=== PATIENT | male | born 2000 | race Caucasian/White ===

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

== ENCOUNTER 2024-11-18 17:45 | Emergency (ER) | payer BC, OTHER, SELFPAY ==
--- OUTSIDE RECORDS SUMMARY | 2024-11-18 17:47 | XMS_ITS | Referral Summary ---
Author Organization [facility] Address [address] [place] [id number] Care Team Providers Care Escort Blind Name Role Phone Unavailable Primary Care Provider Unavailabl e Allergies Active Allergy Reactions Criticality Noted Date Comments Morphine Hallucination 09/07/2012 Penicillin G Swelling 08/29/2012 Medications traZODone (DESYREL) 100 mg tablet Take 100 mg by mouth nightly. Active guanFACINE (TENEX) 2 MG tablet Take 4 mg by mouth nightly. Active mupirocin (BACTROBAN) 2% ointment Apply to affected area of skin TID x 7 days. 22 g 04/26/2020 Active ARIPiprazole (ABILIFY) 30 MG tablet Take 30 mg by mouth Daily. Active FLUoxetine (PROZAC) 40 MG capsule Take 40 mg by mouth Daily. Active Active Problems Problem Noted Date Diagnosed Date Lactose intolerance 04/26/2020 Overview (04/26/2020): [place] milk and goat cheese Gluten intolerance 04/26/2020 Overview (04/26/2020): Soy, wheat and red dye Dental caries 12/09/2011 Overview (01/06/2019): [facility] dental Other developmental speech or language disorder 12/09/2011 Overview (01/06/2019): Fine motor delay and sensory processing difficulty, also articulation, receptive and expressive speech delay. Normal hearing documented 2003. Adopted 12/08/2011 Aspergers Syndrome 12/08/2011 Overview (01/06/2019): Care at [facility]. ADHD (attention deficit hyperactivity disorder) 12/08/2011 Anxiety 12/08/2011 Resolved Problems Problem Noted Date Diagnosed Date Resolved Date Right ankle sprain, initial encounter 05/28/2015 04/26/2020 Overview (01/06/2019): Problem List Tile Ditcher Utility Suicidal ideation 07/06/2014 04/26/2020 Overview (01/06/2019): See ED Note GABRIELA 07/05/14 Behavior problem 12/09/2011 04/26/2020 Overview (01/06/2019): Past hx aggression, self harm behaviors managed through [facility] at [facility]. DR Brown 09/2012- clonidine, prozac, abilify Immunizations Immunization Administration Dates Next Due DTAP (INFANRIX) 5 DOSE 11/06/2003,2002,2002,06/19 HEP A, 2 DOSE (PED) 12/08/2011 HEP A, UNSPECIFIED FORMULATION 05/13/2011 HEP B (PED,ADOLESCENT) 3 DOSE 12/08/2011, 011,01/30/2003 HIB (PRP-T), 4 DOSE (PED) 07/20/2003,01/30/2003 INFLUENZA PF TRIV (FLUZONE,FLULAVAL,FLUARIX,AFLURIA) 05/13/2011 INFLUENZA W/PRES QUADRIVALENT 05/19/2016, 015,08/10/2014 INFLUENZA, UNSPECIFIED FORMULATION 05/13/2011 MENINGOCOCCAL CONJUGATE,MENV EO (PED/ADOL/ADULT) 03/14/2014 MMR (M-M-R II) 2 DOSE 12/08/2011,07/20/2003 POLIO (IPV), 4 DOSE 05/13/2011, 1,11/06/2003,01/30,2002,2002 TDAP, (ADOL/ADULT) 03/14/2014,12/08/2011 TYPHOID, VICPS 02/21/2018 Social History Tobacco Use Types Packs/Day Years Used Date Smoking Tobacco: Never Smokeless Tobacco: Never PHQ-2 Answer Date Recorded PHQ-2 Total Score 0 04/26/2020 Sex and Gender Information Value Date Recorded Sex Assigned at Not on file Legal Sex Male 2:55 AM PST Gender Identity Not on file Sexual Orientation Not on file Last Filed Vital Signs Vital Sign Reading Time Taken Comments Blood Pressure 122/74 04/26/2020 9:24 AM PDT Pulse 92 01/30/2020 9:31 AM PDT Temperature 36.8 C (98.2 F) 01/30/2020 9:31 AM PDT Respiratory Rate 18 04/07/2016 4:43 PM PDT Oxygen Saturation 97% 01/30/2020 9:31 AM PDT Inhaled Oxygen Concentration - - Weight 105.2 kg (232 lb) 04/26/2020 9:24 AM PDT Height 185.4 cm (6' 1 ) 04/26/2020 9:24 AM PDT Body Mass Index 30.61 04/26/2020 9:24 AM PDT Plan of Treatment Not on file Insurance [facility] AETNA PPO [facility]
--- OUTSIDE RECORDS SUMMARY | 2024-11-18 17:47 | XMS_ITS | Clinical Summary ---
Author Organization [facility] Address [address] [place] [address] Phone Care Team Providers Care Porter [employer] Name Role Phone Yi Rivera Primary Care Provider [phone] Family History Medical History Relation Name Comments Arthritis Mother RA Other Mother lupus Relation Name Status Comments Mother Social History Tobacco Use Types Packs/Day Years Used Date Smoking Tobacco: Never Sex and Gender Information Value Date Recorded Sex Assigned at Not on file Legal Sex Male 1:40 PM PDT Gender Identity Not on file Sexual Orientation Not on file Last Filed Vital Signs Vital Sign Reading Time Taken Comments Blood Pressure 106/76 02/07/2014 2:59 PM PDT Pulse 84 02/07/2014 2:59 PM PDT Temperature - - Respiratory Rate - - Oxygen Saturation - - Inhaled Oxygen Concentration - - Weight 49.7 kg (109 lb 9.6 oz) 02/07/2014 2:59 P M PDT Height 153 cm (5' 0.24 ) 02/07/2014 2:59 PM PDT Body Mass Index 21.23 02/07/2014 2:59 PM PDT Plan of Treatment Health Maintenance Due Date Last Done Comments Depression Screening 2014 HPV Vaccines (1 - Male 3-dose series) 2017 Meningococcal B Vaccine (1 of 2 - Standard) 2018 HIV Screening 2020 Hepatitis C Screening 2020 DTaP/Td/Tdap Vaccines (7 - Td or Tdap) 03/14/2024 03/14/2014, 12/08/2011, 11/06/2003, Additional history exists COVID-19 Vaccine ( season) 2024 Influenza Vaccine (Season Ended) 2025 05/19/2016, 05/28/2015, 08/10/2014, Additional history exists Hepatitis B Vaccines Completed 12/08/2011, 05/13/2011, 01/30/2003 Pneumococcal Vaccine Aged Out No long er eligible based on patient's age to complete this topic Care Teams [employer] Relationship Specialty Start Date End Date Yi Rivera [id number] [facility] [address] PCP - General 07/27/14
--- OUTSIDE RECORDS SUMMARY | 2024-11-18 17:47 | XMS_ITS | Clinical Summary ---
Author Organization [facility] Address [address] [place] [address] Care Team Providers Care Office Clerk Name Role Phone Shefali Keller [facility] Primary Care Provider Social History Tobacco Use Types Packs/Day Years Used Date Smoking Tobacco: Never Assessed Financial Resource Strain Answer Date R ecorded Financial Resource Strain Not on file 2022 0 07/12/2023 Food Insecurity Answer Date Recorded Worried About Running Out of Food in the Last Ye ar Not on file 07/12/2023 Ran Out of Food in the Last Year Not on file 07/12/2023 Difficult to Find Nutritious Food in the Last Ye ar Not on file 07/12/2023 0 07/12/2023 Transportation Needs Answer Date Record ed Lack of Transportation (Medical) Not on file 07/12/2023 Lack of Transportation (Non-Medical) Not on file 07/12/2023 0 07/12/2023 Housing Stability Answer Date Recorded Housing Situation Today Not on file 07/12/20 23 Worried About Stable Housing Next Two Months Not on file 07/12/[address] You [address] Not on file 07/12/2023 0 07/12/2023 Sex and Gender Information Value Date Recorded Sex Assigned at Male 02/08/2018 1:12 PM PDT Legal Sex Male 6:48 AM PST Gender Identity Not on file Sexual Orientation Not on file Last Filed Vital Signs Vital Sign Reading Time Taken Comments Blood Pressure - - Pulse - - Temperature - - Respiratory Rate - - Oxygen Saturation - - Inhaled Oxygen Concentration - - Weight 36.5 kg (80 lb 7.5 oz) 12/07/2011 4:38 PM PDT Height 140.5 cm (4' 7.32 ) 12/07/2011 4:38 PM PD T Body Mass Index 18.49 12/07/2011 4:38 PM PDT Plan of Treatment Not on file Insurance [employer]NA [facility] Care Teams Office Clerk Relationship Specialty Start Date End Date [facility] [address] [place] [address] PCP - General 04/15/15
--- OUTSIDE RECORDS SUMMARY | 2024-11-18 17:47 | XMS_ITS | Clinical Summary ---
Author Organization [facility] Care Team Providers Care Delivery Room Supervisor Name Role Phone Unavailable Primary Care Provider Unavailabl e Social History Tobacco Use Types Packs/Day Years Used Date Smoking Tobacco: Never Assessed Sex and Gender Information Value Date Recorded Sex Assigned at Not on file Legal Sex Male 2:58 PM CDT Gender Identity Not on file Sexual Orientation Not on file Plan of Treatment Health Maintenance Due Date Last Done Comments Hepatitis C Virus (HCV) Screening 2002 TdaP Immunization 2002 Human Papillomavirus (HPV) Immunization (1 - Male 3-dose series) 2017 Meningococcal B Immunization (1 of 2 - Standard) 2018 Hepatitis B Immunization (1 of 3 - 19+ 3-dose series) 2021 Influenza Immunization (#1) 2024 SARS-COV-2 Immunization ( season) 2024 08/08/2021, 11/22/2020, 11/01/2020 Respiratory Syncytial Virus (RSV) Immunization (Adult) (1 - 1-dose 75+ series) 2077 Meningococcal Immunization (ACWY) Aged Out No longer eligible b ased on patient's age to complete this topic Pneumococcal Immunization Combined Aged Out No longer eligible b ased on patient's age to complete this topic Rotavirus Immunization Aged Out No lo nger eligible based on patient's age to complete this topic
--- OUTSIDE RECORDS SUMMARY | 2024-11-18 17:47 | XMS_ITS | Clinical Summary ---
Author Organization [facility] Address [address] [place] [id number] Care Team Providers Care Assistant Production Editor Name Role Phone Unavailable Primary Care Provider [...] Diagnosed Date Lactose intolerance 04/26/2020 Overview (04/26/2020): [place] milk and goat cheese Gluten intolerance 04/26/2020 Overview (04/26/2020): Soy, wheat and red dye Dental caries 12/09/2011 Overview (01/06/2019): [facility] dental Other developmental speech or language disorder 12/09/2011 Overview (01/06/2019): Fine motor delay and sensory processing difficulty, also articulation, receptive and expressive speech delay. Normal hearing documented 2003. Adopted 12/08/2011 Aspergers Syndrome 12/08/2011 Overview (01/06/2019): Care at [facility]. ADHD (attention deficit hyperactivity disorder) 12/08/2011 Anxiety 12/08/2011 Resolved Problems Problem Noted Date Diagnosed Date Resolved Date Right ankle sprain, initial encounter 05/28/2015 04/26/2020 Overview (01/06/2019): Problem List Parachute Taper Utility Suicidal ideation 07/06/2014 04/26/2020 Overview (01/06/2019): See ED Note GABRIELA 07/05/14 Behavior problem 12/09/2011 04/26/2020 Overview (01/06/2019): Past hx aggression, self harm behaviors managed through [facility] at [facility]. DR Brown 09/2012- clonidine, prozac, abilify [...] 1,11/06/2003,01/30,2002,2002 TDAP, (ADOL/ADULT) 03/14/2014,12/08/2011 TYPHOID, VICPS 02/21/2018 Family History Medical History Relation Comments Arthritis Mother 2 RA Other (see comment) Mother 2 Other - lupu s Relation Status Comments Mother 1 Mother 2 Social History Tobacco Use Types Packs/Day Years [...] 04/26/2020 9:24 AM PDT Plan of Treatment Health Maintenance Due Date Last Done Comments Vaccine: HPV (1 - Male 3-dos e series) 2017 Vaccine: Dtap/Tdap/Td (7 - T d or Tdap) 03/14/2024 03/14/2014, 12/08/2011, 11/06/2003, Additional history exists COVID-19 Vaccine (2023-2 5 season) 2024 Vaccine: Influenza (Season Ended) 2025 05/19/2016, 05/28/2015, 08/10/2014, Additional history exists Vaccine: Hib Completed 07/20/2003, 01/30/2003 Insurance AETNA PPO [facility] [employer] AETNA PPO [facility] [place] [place] [id number]
--- OUTSIDE RECORDS SUMMARY | 2024-11-18 17:47 | XMS_ITS | Patient Health Record ---
Author Organization [facility] As [facility] [employer] [facility] Address [address] [place] [address] Care Team Providers Care Manager Nicu Name Role Phone Kelley Martinez Unavailable [phone] ShalondaAlejandra caicedo Unavailable [phone] Migration, Provider Unavailable Unavailable Allergies No Known Allergies Reason For Referral No Information Medications Medication SIG (Take, Route, Frequency, Duration) Notes Start Date End Date Status Divalproex Sodium 250 MG 1 tablet Oral T wice a day for 90 days Active ARIPiprazole 20 MG 1 tablet Oral Once a day for 90 days Active traZODone HCl 100 MG 2 tablet at bedtime Oral Once a day for 90 days As needed Active Vitamin D (Ergocalciferol) 1.25 MG (29076 UT) 1 capsule Oral once a week for 84 days Active Immunizations Vaccine Route Administration Date Status Comme nts Pfizer Biontech Covid-19 Vac cine 2nd dose Unknown 11/01/2020 Administered Pfizer Biontech Covid-19 Vac cine 2nd dose Unknown 11/22/2020 Administered Pfizer Biontech Covid-19 Vac cine 2nd dose Unknown 08/08/2021 Administered Social History Tobacco Use: Social History Observation Description Date Details (start date - stop date) Never Smoker NA - NA Sex Assigned At : Social History Observation Description Sex Assigned At Male Household Question Answer Notes Marital status: single Tobacco Control (Standard) Question Answer Notes Tobacco use: Nonsmoker Problems Problem Type SNOMED Code ICD Code Onset Dates Problem Status W/U Status Risk Notes Problem Vitamin D deficiency (25590481) Vitamin D deficiency, unspecified (E55.9) 3 Active confirmed Problem Generalized anxiety disorder (16123476) Generalized anxiety disorder (F41.1) 3 Active confirmed Problem Primary insomnia (4526038) Primary insomnia (F51.01) 3 Active confirmed Problem Bipolar I disorder (917969047) Bipolar I disorder (F31.9) Active confirmed Problem 02456996 Asperger disorder (F84.5) Active confirmed Vital Signs Heart Rate 96 /min 08/30/2024 252 Height-cm 187.96 cm 08/30/2024 252 Blood pressure diastolic 76 mm Hg 08/30/2024 252 Weight-kg 114.31 kg 08/30/2024 252 Height 74.00 in 08/30/2024 252 Blood pressure systolic 121 mm Hg 08/30/2024 252 Weight 252 lbs 08/30/2024 252 BMI 32.35 kg/m2 08/30/2024 252 Encounters Encounter Location Date Provider Diagnosis [facility] [address] [address] 02/01/2024 Alejandra Grayson Bipolar I disorder F31.9 ; Generalized anxiety disorder F41.1 ; Primary insomnia F51.01 ; Asperger disorder F84.5 and Vitamin D deficiency, unspecified E55.9 [facility] [address] [facility] [address] [address] 05/10/2024 Alejandra Grayson Bipolar I disorder F31.9 ; Generalized anxiety disorder F41.1 ; Primary insomnia F51.01 ; Asperger disorder F84.5 and Vitamin D deficiency, unspecified E55.9 [facility] [address] [address] 08/10/2024 Kelley Martinez [facility] [address] [address] 08/30/2024 Kelley Martinez Bipolar I disorder F31.9 ; Generalized anxiety disorder F41.1 ; Primary insomnia F51.01 and Asperger disorder F84.5 [facility] [address] [address] 12/18/2023 Provider Migration [facility] [address] [address] 12/19[facility]23 [facility] [address] [facility] [address] [facility] [address] [place] [address] 01/25/2024 Alejandra Grayson [place] [address] [facility] [address] [place] [address] 01/26/2024 Alejandra Kenan [address] [facility] [address] [place] [address] 01/31/2024 Alejandra Kenan [facility], [address] [facility] [address] [place] [address] 02/04/2024 Alejandra Kenan [facility], [address] [facility] [address] [place] [address] 02/23/2024 Aljeandra Karenjeanniesascha [address] [address] 03/27/2024 Alejandra Batresrenee Primary insomnia F51.[address] [address] 08/30/2024 Kelley Martinez Bipolar I disorder F31.9 and Primary insomnia F51.01 Assessments Encounter Date Diagnosis (ICD Code) Assessment Notes Treatment Notes Treatment Clinical Notes Section Notes 02/01/2024 Bipolar I disorder (ICD-10 - F31.9) not seen since june, did well with stopping wellbutrin, mood more stable. has continued other medications. had metabolic workup with PCP that they report was normal. Education on meds, treatment course. is satisfied with current medications, prefers to keep same and work on diet and exercise to address weight. f/u in 3 months, earlier if concerns meds: cont depakote DR 250mg BID cont abilify 20mg daily -historically does not do well with stimulants; hx ADHD dx-hx of psychosis 02/01/2024 Generalized anxiety disorder (ICD-10 - F41.1) meds as aboverecommend therapy if anxiety/mood sx bothersome 03/27/2024 Primary insomnia (ICD-10 - F51.01) 05/10/2024 Bipolar I disorder (ICD-10 - F31.9) stable cont depakote DR 250mg BID cont abilify 20mg daily stable, reports doing well; working on diet and exercise no new orders; education on meds and treatment course. f/u 3 months, earlier if concerns -discussed transition to new provider as I am leaving the practice after this month notes: -historically does not do well with stimulants; hx ADHD dx-hx of psychosis 08/30/2024 Generalized anxiety disorder (ICD-10 - F41.1) Bipolar Disorder - Stable, good mood, no carmela reported Plan: - Continue depakote DR 250mg twice a day - Continue abilify 20mg daily - Continue to monitor mood and mental health at follow-up visits Anxiety - Situational stress at work causing anxiety - Reports overall mild and manageable Plan: - Continue current treatment regimen as prescribed - Encourage utilization of stress management techniques and seeking support as needed Insomnia - Reports sleeping well Plan: - Continue trazodone 100 mg, 2 tablets at bedtime as needed Asperger's Disorder - Mood is good, stable overall - Reports inability to manage work balance and reluctancy to decline requests at work to work overtime - Mother lisa's letter supoprting his overall stability but requests a letter recommended he not be required to work over 25 hours a week. Plan: - Write a latter to support a reduction in work hours to 25 hours per week Weight loss and lifestyle improvement - Significant weight loss of 40 pounds, current weight at 250 pounds - Working on improving confidence and overall well-being Plan: - Encourage continued healthy lifestyle choices and weight loss efforts - Monitor weight and overall health status at follow-up visits Follow-up in 3 months to monitor progress and address any concerns 08/30/2024 Bipolar I disorder (ICD-10 - F31.9) Bipolar Disorder - Stable, good mood, no carmela reported Plan: - Continue depakote DR 250mg twice a day - Continue abilify 20mg daily - Continue to monitor mood and mental health at follow-up visits Anxiety - Situational stress at work causing anxiety - Reports overall mild and manageable Plan: - Continue current treatment regimen as prescribed - Encourage utilization of stress management techniques and seeking support as needed Insomnia - Reports sleeping well Plan: - Continue trazodone 100 mg, 2 tablets at bedtime as needed Asperger's Disorder - Mood is good, stable overall - Reports inability to manage work balance and reluctancy to decline requests at work to work overtime - Mother lisa's letter supoprting his overall stability but requests a letter recommended he not be required to work over 25 hours a week. Plan: - Write a latter to support a reduction in work hours to 25 hours per week Weight loss and lifestyle improvement - Significant weight loss of 40 pounds, current weight at 250 pounds - Working on improving confidence and overall well-being Plan: - Encourage continued healthy lifestyle choices and weight loss efforts - Monitor weight and overall health status at follow-up visits Follow-up in 3 months to monitor progress and address any concerns 08/30/2024 Bipolar I disorder (ICD-10 - F31.9) 08/30/2024 Primary insomnia (ICD-10 - F51.01) 08/30/2024 Primary insomnia (ICD-10 - F51.01) Bipolar Disorder - Stable, good mood, no carmela reported Plan: - Continue depakote DR 250mg twice a day - Continue abilify 20mg daily - Continue to monitor mood and mental health at follow-up visits Anxiety - Situational stress at work causing anxiety - Reports overall mild and manageable Plan: - Continue current treatment regimen as prescribed - Encourage utilization of stress management techniques and seeking support as needed Insomnia - Reports sleeping well Plan: - Continue trazodone 100 mg, 2 tablets at bedtime as needed Asperger's Disorder - Mood is good, stable overall - Reports inability to manage work balance and reluctancy to decline requests at work to work overtime - Mother lisa's letter supoprting his overall stability but requests a letter recommended he not be required to work over 25 hours a week. Plan: - Write a latter to support a reduction in work hours to 25 hours per week Weight loss and lifestyle improvement - Significant weight loss of 40 pounds, current weight at 250 pounds - Working on improving confidence and overall well-being Plan: - Encourage continued healthy lifestyle choices and weight loss efforts - Monitor weight and overall health status at follow-up visits Follow-up in 3 months to monitor progress and address any concerns 05/10/2024 Generalized anxiety disorder (ICD-10 - F41.1) minimal to none meds as above 02/01/2024 Primary insomnia (ICD-10 - F51.01) cont trazodone 200mg qhs prn-not taking every day practice good sleep hygiene 02/01/2024 Asperger disorder (ICD-10 - F84.5) lives with mother 05/10/2024 Primary insomnia (ICD-10 - F51.01) cont trazodone 200mg qhs prn-not taking every day practice good sleep hygiene 08/30/2024 Asperger disorder (ICD-10 - F84.5) Bipolar Disorder - Stable, good mood, no carmela reported Plan: - Continue depakote DR 250mg twice a day - Continue abilify 20mg daily - Continue to monitor mood and mental health at follow-up visits Anxiety - Situational stress at work causing anxiety - Reports overall mild and manageable Plan: - Continue current treatment regimen as prescribed - Encourage utilization of stress management techniques and seeking support as needed Insomnia - Reports sleeping well Plan: - Continue trazodone 100 mg, 2 tablets at bedtime as needed Asperger's Disorder - Mood is good, stable overall - Reports inability to manage work balance and reluctancy to decline requests at work to work overtime - Mother lisa's letter supoprting his overall stability but requests a letter recommended he not be required to work over 25 hours a week. Plan: - Write a latter to support a reduction in work hours to 25 hours per week Weight loss and lifestyle improvement - Significant weight loss of 40 pounds, current weight at 250 pounds - Working on improving confidence and overall well-being Plan: - Encourage continued healthy lifestyle choices and weight loss efforts - Monitor weight and overall health status at follow-up visits Follow-up in 3 months to monitor progress and address any concerns 05/10/2024 Asperger disorder (ICD-10 - F84.5) lives with mother 02/01/2024 Vitamin D deficiency, unspecified (ICD-10 - E55.9) cont supplementation, vit D2 50,000units once weekly-wants to cont weekly vs OTC 05/10/2024 Vitamin D deficiency, unspecified (ICD-10 - E55.9) cont supplementation, vit D2 50,000 units once weekly-wants to cont weekly vs OTC has refill 02/01/2024 Other 08/30/2024 Other Bipolar Disorder - Stable, good mood, no carmela reported Plan: - Continue depakote DR 250mg twice a day - Continue abilify 20mg daily - Continue to monitor mood and mental health at follow-up visits Anxiety - Situational stress at work causing anxiety - Reports overall mild and manageable Plan: - Continue current treatment regimen as prescribed - Encourage utilization of stress management techniques and seeking support as needed Insomnia - Reports sleeping well Plan: - Continue trazodone 100 mg, 2 tablets at bedtime as needed Asperger's Disorder - Mood is good, stable overall - Reports inability to manage work balance and reluctancy to decline requests at work to work overtime - Mother lisa's letter supoprting his overall stability but requests a letter recommended he not be required to work over 25 hours a week. Plan: - Write a latter to support a reduction in work hours to 25 hours per week Weight loss and lifestyle improvement - Significant weight loss of 40 pounds, current weight at 250 pounds - Working on improving confidence and overall well-being Plan: - Encourage continued healthy lifestyle choices and weight loss efforts - Monitor weight and overall health status at follow-up visits Follow-up in 3 months to monitor progress and address any concerns Plan Of Treatment Next Appt Details Provider Name:Kelley sharma, 11/20/2024 01:00:00 PM, [facility] [facility] [address], [facility] [address], [place], [address], Insurance Providers Payer Name Payer Address Payer Phone Subscriber Number Group Number Insured Name Patient Relationship to Insured Coverage Start Date Coverage End Date [facility] [address] [place] [address] [id number] BLAIR SEN, KALPESH Step Child [place] - Fep Ppo [address] [place] [address] [id number] Child - Insured has Financial Responsibility Medical (General) History Medical History History ICD Code Problems: Asperger's disorder Autistic disorder Bipolar I disorder Dyslexia Generalized anxiety disorder Obesity Primary insomnia Vitamin D deficiency Surgical History Surgery Date(Month/Year) left arm when 9 yrs old, broken
--- OUTSIDE RECORDS SUMMARY | 2024-11-18 17:47 | XMS_ITS | Referral Summary ---
Author Organization [facility] Address [address] [place] [address] Phone Care Team Providers Care Terrazzo Tile Setter Name Role Phone Yi Rivera Primary Care Provider [phone] Social History Tobacco Use Types Packs/Day Years [...] 02/07/2014 2:59 PM PDT Plan of Treatment Not on file Care Teams Terrazzo Tile Setter Relationship Specialty Start Date End Date Yi Rivera [address] [facility] [place] [address] PCP - General 07/27/14
--- OUTSIDE RECORDS SUMMARY | 2024-11-18 17:47 | XMS_ITS | Clinical Summary ---
Author Organization [facility] Address [address] [place] [address] Care Team Providers Care Vehicle Assembly Inspector Name Role Phone Ines Locke MD Primary Care Provider [phone] Allergies Active Allergy Reactions Criticality Noted Date Comments Morphine Hallucinations 09/07/2012 Penicillins Swelling 12/05/2012 Medications ABILIFY 2 mg tablet 11/19/2012 Active fLUoxetine (PROZAC) 20 MG capsule 11/28/2012 Active INTUNIV ER 2 mg Tb24 08/30/2012 Active traZODone (DESYREL) 50 MG tablet 11/28/2012 Active cloNIDine (CATAPRES-TTS) 0.2 mg/24 hr 11/15/2012 Active Active Problems Problem Noted Date Diagnosed Date Sprain of right ankle, initial encounter 015 Overview (12/31/2019): Problem List Nnp Utility Problem List Nnp Utility Behavior problem 12/09/2011 Overview (12/31/2019): Past hx aggression, self harm behaviors managed through [facility]. DR Brown 09/2012- clonidine, prozac, abilify Past hx aggression, self harm behaviors managed through [facility]. DR Brown 09/2012- clonidine, prozac, abilify ADHD (attention deficit hyperactivity disorder) 12/08/2011 Adopted 12/08/2011 Anxiety 12/08/2011 Other specified pervasive de velopmental disorders, current or active state 12/08/2011 Overview (12/31/2019): Care at [facility] autism center. Care at [facility] autism center. Social History Tobacco Use Types Packs/Day Years Used Date Smoking Tobacco: Never Alcohol Use Standard Drinks/Week Comments No 0 (1 standard drink = 0.6 oz pur e alcohol) Sex and Gender Information Value Date Recorded Sex Assigned at Not on file Legal Sex Male 6:16 PM PDT Gender Identity Not on file Sexual Orientation Not on file Last Filed Vital Signs Vital Sign Reading Time Taken Comments Blood Pressure 117/81 12/31/2019 7:12 PM PDT Pulse 86 12/31/2019 7:12 PM PDT Temperature 37.2 C (98.9 F) 12/31/2019 7:12 PM PDT Respiratory Rate 16 12/31/2019 7:12 PM PDT Oxygen Saturation 98% 12/31/2019 7:12 PM PDT Inhaled Oxygen Concentration - - Weight 99.3 kg (219 lb) 12/31/2019 7:12 PM PDT Height 188 cm (6' 2 ) 12/31/2019 7:12 PM PDT Body Mass Index 28.12 12/31/2019 7:12 PM PDT Plan of Treatment Health Maintenance Due Date Last Done Comments Sleep Assessment 2002 HPV VACCINES (1 - Male 3-dos e series) 2017 Audit-C Screening 2020 Social Drivers of Health Screening (Geophysical Prospector- MP Primary C Only) 2020 DTaP/Tdap/Td (3 - Td or Tdap) 03/14/2024, 12/08/2011 Covid-19 Immunization ( season) 2024 Influenza Vaccine (#1) 2024 MENINGOCOCCAL VACCINE Aged Out No unique pennie eligible based on patient's age to complete this topic Pneumococcal Vaccine: Pediatrics (0 to 5 Years) and At-Risk Patients (6 to 49 Years) Aged Out No longer eligible b ased on patient's age to complete this topic Insurance [facility] AETNA PPO Care Teams Vehicle Assembly Inspector Relationship Specialty Start Date End Date Ines Locke MD PCP - General Pediatrics 12/05/12
[2024-11-18 17:54] VITALS: BP 138/92; PULSE 106; RESP 18; TEMP 37; O2SAT 97
[2024-11-18] MEDS: LACTATED RINGERS 1,000 ML 999 ML IV CONT ×2 (18:33→19:09)
[2024-11-18] MEDS: ONDANSETRON INJ 4 MG/2 ML VIAL IV PUSH (18:34)
--- OUTSIDE RECORDS SUMMARY | 2024-11-18 18:35 | XMS_ITS | Clinical Summary ---
Author Organization [facility] Address [address] [address] [place] [address] Care Team Providers Care Horticulture Worker Name Role Phone Yi Rivera MD Primary Care Provider [phone] Allergies Active Allergy Reactions Criticality Noted Date Comments Penicillins Swelling 12/05/2012 Medications ARIPiprazole (ABILIFY) 2 MG tablet 11/19/2012 Active traZODone (DESYREL) 50 MG tablet 11/28/2012 Active FLUoxetine (PROZAC) 20 MG capsule Take 20 mg by mouth 09/29/2013 Active guanFACINE 4 mg Tablet Extended Release 24 hr Take 4 mg by mouth 04/12/2014 Active melatonin 3 mg tablet Take 3 mg by mouth Active Active Problems No known active problems Family History Medical History Relation Comments Asthma Brother Relation Status Comments Brother Social History Tobacco Use Types Packs/Day Years Used Date Smoking Tobacco: Never Smokeless Tobacco: Never Alcohol Use Standard Drinks/Week Comments No 0 (1 standard drink = 0.6 oz pur e alcohol) Alcohol Use Audit-C Answer Date Recorde d [facility] SDOH: Audit-C Score Not on file 04/26 Sex and Gender Information Value Date Recorded Sex Assigned at Not on file Legal Sex Male 11:58 AM PST Gender Identity Not on file Sexual Orientation Not on file Last Filed Vital Signs Vital Sign Reading Time Taken Comments Blood Pressure 120/77 02/02/2019 11:48 AM PDT Pulse 85 02/02/2019 11:48 AM PDT Temperature 36.9 C (98.4 F) 02/02/2019 11:48 AM PDT Respiratory Rate 16 02/02/2019 11:48 AM PDT Oxygen Saturation 97% 02/02/2019 11:48 AM PDT Inhaled Oxygen Concentration - - Weight 86.6 kg (191 lb) 02/02/2019 11:48 AM PDT Height 182.2 cm (5' 11.75 ) 02/02/2019 11:48 AM PDT Body Mass Index 26.09 02/02/2019 11:48 AM PDT Plan of Treatment Health Maintenance Due Date Last Done Comments SCRN: HIV 2002 IMM: MMR Vaccines (1 of 1 - Standard series) 2003 IMM: Hepatitis A Vaccines (2 of 2 - 2-dose series) 06/09/2012 12/08/2011 IMM: Varicella (1 of 2 - 13+ 2-dose series) 2015 IMM: HPV (1 - Male 3-dose series) 2017 IMM: Meningococcal B Vaccine (1 of 2 - Standard) 2018 SCRN: Hepatitis C 2020 IMM: Diphtheria, Tetanus, and Pertussis (1 - Tdap) 2021 IMM: Hepatitis B Vaccines (1 of 3 - 19+ 3-dose series) 2021 IMM: Influenza 03/02/2024 05/19/2016, 05/03, 08/10/2014, Additional history exists IMM: COVID-19 Vaccine ( - 2023- season) 2024 IMM: RSV Vaccine (1 - 1-dose 75+ series) 2077 IMM: HIB Completed 07/20/2003, 01/30/2003 IMM: IPV (Polio) Completed 05/13/2011, 01/2004, 01/30/2003, Additional history exists IMM: Meningococcal ACWY Vaccine Aged Out No longer eligible based on patient's age to complete this topic IMM: Pneumonia Vaccine Aged Out No lo nger eligible based on patient's age to complete this topic IMM: Rotavirus Vaccines Aged Out No l onger eligible based on patient's age to complete this topic Insurance [employer] [place] [id number] [facility] Care Teams Horticulture Worker Relationship Specialty Start Date End Date Yi Rivera MD PCP - General Pediatrics 08/25/16
--- OUTSIDE RECORDS SUMMARY | 2024-11-18 18:35 | XMS_ITS | Clinical Summary ---
Author Organization [facility] Address [address] [place] [address] Care Team Providers Care Fulfillment Specialist Name Role Phone Shefail Keller [facility] Primary Care Provider Social History Tobacco Use [...] AETNA PREMER[employer] AETNA PRE[employer] AETNA PRE[employer] AETNA [facility] Care Teams Fulfillment Specialist Relationship Specialty Start Date End Date [facility] [address] [facility] [address] [place] [address] PCP - General 04/15/15
--- OUTSIDE RECORDS SUMMARY | 2024-11-18 18:35 | XMS_ITS | Clinical Summary ---
Author Organization [facility] Address [address] [place] [address] Care Team Providers Care Manager Of It Name Role Phone Ines Locke MD Primary Care Provider [phone] Allergies Active Allergy Reactions Criticality Noted Date [...] initial encounter 015 Overview (12/31/2019): Problem List Tree Cutter Utility Problem List Tree Cutter Utility Behavior problem 12/09/2011 Overview (12/31/2019): Past hx aggression, self harm behaviors managed through [facility]. DR Brown 09/2012- clonidine, prozac, abilify Past hx aggression, self harm behaviors managed through [facility]. DR Brown 09/2012- clonidine, prozac, abilify ADHD (attention deficit hyperactivity disorder) 12/08/2011 Adopted 12/08/2011 Anxiety 12/08/2011 Other specified pervasive de velopmental disorders, current or active state 12/08/2011 Overview (12/31/2019): Care at [facility] center. Care at [facility]. Social History Tobacco Use Types [...] Screening 2020 Social Drivers of Health Screening (Incendiaries Supervisor- MP Primary C Only) 2020 DTaP/Tdap/Td (3 [...] patient's age to complete this topic Insurance [facility] AETNA PPO Care Teams Manager Of It Relationship Specialty Start Date End Date Ines Locke MD PCP - General Pediatrics 12/05/12
--- OUTSIDE RECORDS SUMMARY | 2024-11-18 18:35 | XMS_ITS | Clinical Summary ---
Author Organization [facility] Address [address] [place] [address] Care Team Providers Care Electron Gun Assembler Name Role Phone Hilario Hanson MD Primary Care Provider [phone] Social History Tobacco Use Types Packs/Day Years Used Date Smoking Tobacco: Never Assessed Sex and Gender Information Value Date Recorded Sex Assigned at Not on file Legal Sex Male 9:02 AM PST Gender Identity Not on file Sexual Orientation Not on file Plan of Treatment Not on file Insurance [facility] Address: [address] [place] [address] [facility] Care Teams Electron Gun Assembler Relationship Specialty Start Date End Date Hilario Hanson MD PCP - General Pediatric Medicine 11/18/10
--- OUTSIDE RECORDS SUMMARY | 2024-11-18 18:35 | XMS_ITS | Clinical Summary ---
Author Organization [facility] Address [address] [place] [address] Care Team Providers Care Risk Consultant Name Role Phone Unavailable Primary Care Provider [...] Diagnosed Date Lactose intolerance 04/26/2020 Overview (04/26/2020): [place] milk and goat cheese Gluten intolerance 04/26/2020 Overview (04/26/2020): Soy, wheat and red dye Dental caries 12/09/2011 Overview (01/06/2019): [facility] dental Other developmental speech or language disorder 12/09/2011 Overview (01/06/2019): Fine motor delay and sensory processing difficulty, also articulation, receptive and expressive speech delay. Normal hearing documented 2003. Adopted 12/08/2011 Aspergers Syndrome 12/08/2011 Overview (01/06/2019): Care at [facility]. ADHD (attention deficit hyperactivity disorder) 12/08/2011 Anxiety 12/08/2011 Resolved Problems Problem Noted Date Diagnosed Date Resolved Date Right ankle sprain, initial encounter 05/28/2015 04/26/2020 Overview (01/06/2019): Problem List [place] Utility Suicidal ideation 07/06/2014 04/26/2020 Overview (01/06/2019): See ED Note GABRIELA 07/05/14 Behavior problem 12/09/2011 04/26/2020 Overview (01/06/2019): Past hx aggression, self harm behaviors managed through [facility] at [facility]. DR Brown 09/2012- clonidine, prozac, abilify [...] Hib Completed 07/20/2003, 01/30/2003 Insurance [employer] PPO [facility] [employer] PPO [facility]
--- OUTSIDE RECORDS SUMMARY | 2024-11-18 18:36 | XMS_ITS | Referral Summary ---
Author Organization [facility] Address [address] [place] [address] Phone Care Team Providers Care Wood Boring Machine Operator Name Role Phone Yi Rivera Primary Care Provider [phone] Social History Tobacco Use Types Packs/Day Years [...] of Treatment Not on file Care Teams Wood Boring Machine Operator Relationship Specialty Start Date End Date Yi Rivera [address] [facility] [id number] PCP - General 07/27/14
--- OUTSIDE RECORDS SUMMARY | 2024-11-18 18:36 | XMS_ITS | Referral Summary ---
Author Organization [facility] Address [address] [place] [id number] Care Team Providers Care Supervising Film Or Videotape Editor Name Role Phone Unavailable Primary Care [...] Diagnosed Date Lactose intolerance 04/26/2020 Overview (04/26/2020): [place] milk and goat cheese Gluten intolerance 04/26/2020 Overview (04/26/2020): Soy, wheat and red dye Dental caries 12/09/2011 Overview (01/06/2019): [facility] dental Other developmental speech or language disorder 12/09/2011 Overview (01/06/2019): Fine motor delay and sensory processing difficulty, also articulation, receptive and expressive speech delay. Normal hearing documented 2003. Adopted 12/08/2011 Aspergers Syndrome 12/08/2011 Overview (01/06/2019): Care at [facility]. ADHD (attention deficit hyperactivity disorder) 12/08/2011 Anxiety 12/08/2011 Resolved Problems Problem Noted Date Diagnosed Date Resolved Date Right ankle sprain, initial encounter 05/28/2015 04/26/2020 Overview (01/06/2019): Problem List Director Manufacturing Engineering Utility Suicidal ideation 07/06/2014 04/26/2020 Overview (01/06/2019): See ED Note GABRIELA 07/05/14 Behavior problem 12/09/2011 04/26/2020 Overview (01/06/2019): Past hx aggression, self harm behaviors managed through [facility] at [facility]. DR Brown 09/2012- clonidine, prozac, abilify [...] Treatment Not on file Insurance [facility] [employer] PPO [facility]
--- OUTSIDE RECORDS SUMMARY | 2024-11-18 18:36 | XMS_ITS | Clinical Summary ---
Author Organization [facility] Address [address] [place] [address] Phone Care Team Providers Care Floor Specialist Name Role Phone Yi Rivera Primary Care Provider [phone] Family History Medical History Relation Name Comments [...] age to complete this topic Care Teams Floor Specialist Relationship Specialty Start Date End Date Yi Rivera [address] [facility] [place] [address] PCP - General 07/27/14
--- OUTSIDE RECORDS SUMMARY | 2024-11-18 18:36 | XMS_ITS | Clinical Summary ---
Author Organization [facility] Care Team Providers Care Automotive Wholesale Parts Advisor Name Role Phone Unavailable Primary Care Provider [...]
--- NOTE | 2024-11-18 18:37 | ED.GENADULT ---
HPI - General Adult General Chief complaint: Nausea/Vomiting/Diarrhea Stated complaint: N/V/D x 3days Time Seen by Provider: 11/18/24 18:01 History of Present Illness HPI narrative: 24-year-old male with history of prediabetes and on GLP-1 for last 6 months presents to the emergency department for evaluation for nausea vomiting diarrhea it has been ongoing for the last 4 days. Patient did receive 2 oral doses of Zofran but did have emesis afterwards. Related Data Home Medications ?Medication ?Instructions ?Recorded ?Confirmed ?Last Taken ?Type aripiprazole 15 mg tablet (Abilify) 15 mg PO HS 02/03/21 02/03/21 Unknown History fluoxetine 60 mg tablet 60 mg PO DAILY 02/03/21 02/03/21 Unknown History trazodone 100 mg tablet 100 mg PO HS 02/03/21 02/03/21 Unknown History Allergies Allergy/AdvReac Type Severity Reaction Status Date / Time gluten Allergy Unknown Verified 11/18/24 17:46 Milk Containing Products Allergy Unknown Verified 11/18/24 17:46 (Dairy) (Milk Containing Products) red dye Allergy Unknown Verified 11/18/24 17:46 soy Allergy Unknown Verified 11/18/24 17:46 wheat Allergy Unknown Verified 11/18/24 17:46 Review of Systems Review of Systems: All systems reviewed & are unremarkable except as noted in HPI and below Exam Narrative: APPEARANCE: Well appearing, no pain, no distress, well-nourished. HEAD: normocephalic, atraumatic. EYES: PERRLA/EOMI, conjunctivae clear. NOSE: Normal no drainage EARS:TMS clear with good light reflex. THROAT: Pharynx clear, no exudate. NECK: Supple. No adenopathy, no masses. RESPIRATORY: Airway patent, respirations nonlabored. Clear to auscultation bilaterally, no rales, rhonchi, wheezing. CARDIOVASCULAR: Regular rate and rhythm without murmurs rubs or gallops. ABDOMINAL: Soft, nontender, nondistended, normal bowel sounds MUSCULOSKELETAL: Moves all extremities. Strength/ROM intact, No edema, No calf tenderness. NEURO: Alert. Cranial nerves II through XII intact. Grossly intact SKIN: Warm, dry. Normal Color Course Vital Signs Vital signs: Vital Signs Temperature 98.6 F 11/18/24 17:54 Pulse Rate 106 H 11/18/24 17:54 Respiratory Rate 18 11/18/24 17:54 Blood Pressure 138/92 H 11/18/24 17:54 Pulse Oximetry 97 11/18/24 17:54 Temperature 98.6 F 11/18/24 17:54 Pulse Rate 106 H 11/18/24 17:54 Respiratory Rate 18 11/18/24 17:54 Blood Pressure 138/92 H 11/18/24 17:54 Pulse Oximetry 97 11/18/24 17:54 Medical Decision Making [facility] Narrative Medical decision making narrative: 24-year-old male presents emergency department for evaluation for nausea vomiting. Patient is currently afebrile with no leukocytosis hemoglobin 16, no significant abnormalities on the patient's CMP and patient was negative for C diff influenza a B RSV and for COVID. Patient did feel improved with rehydration. Was advised to follow a clear liquid diet for the next 3-5 days was provided Zofran for nausea control. Differential Diagnosis Differential Diagnosis: Colitis, diverticulitis, dehydration, DKA, COVID, RSV, influenza, C-diff Vital Signs Vital Signs: Vital Signs Temperature 98.6 F 11/18/24 17:54 Pulse Rate 106 H 11/18/24 17:54 Respiratory Rate 18 11/18/24 17:54 Blood Pressure 138/92 H 11/18/24 17:54 Pulse Oximetry 97 11/18/24 17:54 Temperature 98.6 F 11/18/24 17:54 Pulse Rate 106 H 11/18/24 17:54 Respiratory Rate 18 11/18/24 17:54 Blood Pressure 138/92 H 11/18/24 17:54 Pulse Oximetry 97 11/18/24 17:54 Lab Data Lab results reviewed: Yes I reviewed the patient's lab results. 11/18/24 18:38 11/18/24 18:38 Labs: Lab Results 11/18/24 11/18/24 11/18/24 Range/Units 18:13 18:38 19:20 WBC 6.7 (4.5-10.0) K/mm3 RBC 5.51 (4.6-6.20) M/mm3 Hgb 16.0 (14.0-18.0) g/dL Hct 48.2 (42.0-52.0) % MCV 87.5 (80-100) fl MCH 29.0 (26-34) pg MCHC 33.2 (32-36) g/dl RDW 12.9 (11.5-14.5) % Plt Count 246 (150-375) k/mm3 MPV 10.4 (7.4-10.4) fl Immature Gran % (Auto) 0.1 (0-0.5) % Neut % (Auto) 73.4 H (45.5-73.1) % Lymph % (Auto) 17.1 L (18.3-44.2) % Emmons % (Auto) 8.2 (2.6-8.5) % Eos % (Auto) 0.9 (0-4.4) % Baso % (Auto) 0.3 (0.2-1.2) % Lymph # (Auto) 1.14 (0.9-3.2) K/mm3 Emmons # (Auto) 0.6 (0.1-0.6) K/mm3 Eos # (Auto) 0.1 (0-0.3) K/mm3 Baso # (Auto) 0.0 (0.0-0.1) K/mm3 Abs Immat Gran (auto) 0.01 (0.00-0.031) K/mm3 Absolute Neuts (auto) 4.9 (1.3-6.7) K/mm3 Absolute Nucleated RBC 0.000 (0.0-0.012) K/mm3 Nucleated RBC % 0.0 (0.0-0.2) % Sodium 141 (137-145) mmol/L Potassium 3.9 (3.4-5.0) mmol/L Chloride 108 H (98-107) mmol/L Carbon Dioxide 23 (22-30) mmol/L Anion Gap 10 (4-12) mmol/L BUN 12 (9-20) mg/dL Creatinine 0.90 (0.7-1.3) mg/dL Estim Creat Clear Calc 155 ml/min Estimated GFR > 60 (59 - ) Glucose 89 (65-110) mg/dL Calcium 8.7 (8.4-10.2) mg/dL Total Bilirubin 0.5 (0.2-1.3) mg/dL AST 23 (17-59) U/L ALT 35 (6-50) U/L Alkaline Phosphatase 64 (38-126) U/L Total Protein 7.0 (6.3-8.2) g/dL Albumin 4.2 (3.5-5.1) g/dL C. difficile (PCR) Negative (NEGATIVE) Influenza A (RT-PCR) Negative (Negative) Influenza B (RT-PCR) Negative (Negative) RSV (RT-PCR) Negative (Negative) SARS-CoV-2 RNA (RT-PCR) Negative (Negative) Discharge Plan Discharge Clinical Impression: Drug-induced nausea and vomiting Patient Disposition: Home Condition: Stable Instructions: Antibiotic Form, Clear Liquid Diet (ED), Acute Nausea and Vomiting (ED) Additional Instructions: Zofran as needed for nausea control. Clear liquid diet for the next 3-5 days. Have close follow-up with your primary care physician. If you have any worsening symptoms and please call or return to the emergency department. Patient Language: Fijian Prescriptions: New ondansetron 4 mg tablet,disintegrating 4 mg PO Q8H PRN (Reason: nausea and vomiting) Qty: 14 0RF No Action aripiprazole [Abilify] 15 mg Tablet 15 mg PO HS Rx Instructions: 1/2 tablet fluoxetine 60 mg Tablet 60 mg PO DAILY trazodone 100 mg Tablet 100 mg PO HS Follow-up/Referrals: UNKNOWN,DOCTOR [Primary Care Provider] - Stand Alone Forms: Work/School Release IP
[2024-11-18 18:47] LABS: Basophils Percent Auto 0.3 % (0.2-1.2); Eosinophils Absolute Auto 0.1 K/mm3 (0-0.3); Eosinophils Percent Auto 0.9 % (0-4.4); Hematocrit 48.2 % (42.0-52.0); Immature Granulocyte Absolute 0.01 K/mm3 (0.00-0.031); Immature Granulocyte Percent A 0.1 % (0-0.5); Lymphocytes Absolute Auto 1.14 K/mm3 (0.9-3.2); Lymphocytes Percent Auto 17.1 % (18.3-44.2); Mean Corpuscular HGB Conc 33.2 g/dl (32-36); Mean Corpuscular Volume 87.5 fl (80-100); Mean Platelet Volume 10.4 fl (7.4-10.4); Monocytes Absolute Auto 0.6 K/mm3 (0.1-0.6); Monocytes Percent Auto 8.2 % (2.6-8.5); Neutrophils Absolute Auto 4.9 K/mm3 (1.3-6.7); Neutrophils Percent Auto 73.4 % (45.5-73.1); Platelet Count Result 246 k/mm3 (150-375); Red Blood Count 5.51 M/mm3 (4.6-6.20); Red Cell Distribution Width 12.9 % (11.5-14.5); White Blood Count 6.7 K/mm3 (4.5-10.0)
[2024-11-18 18:55] LABS: Influenza A QL RT-PCR Negative (Negative); Influenza B QL RT-PCR Negative (Negative); RSV RNA, RT-PCR Negative (Negative); SARS-CoV-2 RNA PCR Negative (Negative)
[2024-11-18 18:56] LABS: Alanine Aminotransferase 35 U/L (6-50); Albumin Level 4.2 g/dL (3.5-5.1); Alkaline Phosphatase 64 U/L (38-126); Anion Gap 10 mmol/L (4-12); Aspartate Amino Transferase 23 U/L (17-59); Bilirubin,Total 0.5 mg/dL (0.2-1.3); Blood Urea Nitrogen 12 mg/dL (9-20); Calcium 8.7 mg/dL (8.4-10.2); Carbon Dioxide 23 mmol/L (22-30); Chloride 108 mmol/L (98-107); Estimated CRCL calculation 155 ml/min; Estimated Glomerular Filt Rate > 60; Glucose 89 mg/dL (65-110); Potassium 3.9 mmol/L (3.4-5.0); Sodium 141 mmol/L (137-145)
[2024-11-18 20:20] LABS: Toxigenic C. Diff NEGATIVE (NEGATIVE)
== END 2024-11-18 21:03 | disposition home or self-care (01) ==
PROVIDERS: Emergency Provider Emergency Medicine
DX: R11.2 Nausea with vomiting, unspecified (principal); T50.995A Adverse effect of other drugs, medicaments and biological substances, initial encounter; R73.03 Prediabetes; Z20.822 Contact with and (suspected) exposure to COVID-19
CPT/HCPCS: 36415; 80053; 85025; 87045; 87427; 87449; 87493; 87637; 89055; 96361; 96374; 99284; J2405; J7120